=== PATIENT | male | born 1960 | race Caucasian/White ===

== ENCOUNTER 2016-12-14 00:45 | Emergency (ER) | payer OTHER ==
[~2016-12-14] VITALS: Ht 180.3 cm; Wt 145.6 kg
[~2016-12-14 00:45] MED LIST: AFRI0.055; AMOX875 PO; ASPI81 PO; BENA25TA5 PO; COMBAER INH; DYAZ37.52 PO; GEMF600T PO; HYDR-3580 PO; LOTR5CAP3 PO; PRED50TA PO; RANI150 PO; [UNRECOGNIZED DRUG - CODE] EACH EAR
[2016-12-14 00:58] VITALS: BP 225/100; PULSE 83; RESP 16; TEMP 98.6; O2SAT 98
[2016-12-14] MEDS ORDERED: TRIA37.5 PO (01:18)
[2016-12-14] MEDS ORDERED: ATEN50TA PO (01:18)
[2016-12-14] MEDS ORDERED: LOSA100T PO (01:18)
[2016-12-14] MEDS ORDERED: RANI150T PO (01:18)
[2016-12-14] MEDS ORDERED: GEMF600T PO (01:18)
[2016-12-14] MEDS ORDERED: ASPI81CH CHEW (01:18)
--- NOTE | 2016-12-14 01:24 | PD ---
HPI Chief Complaint: OD/ Ingestion Time Seen by Provider: 01:08 Travel History International Travel<30 days: No Contact w/Intl Traveler<30days: No History of Present Illness HPI patient is a 56-year-old male diabetic presents emergency department after he accidentally took a repeat dose of his gemfibrozil at approximately midnight tonight. Patient states he started taking that dose several hours earlier. He states he knew he took an extra pill by accident At All His Pills and This Is the Pill That He Is Missing. Denies Any Physical Complaints, States He Doesn't Typically Check His Blood Sugar at Home. Denies Any Chest Pain Shortness of Breath Fatigue Weakness Diaphoresis or Pallor. PFSH Past Medical History Cardiovascular Problems: Yes High Cholesterol: Yes COPD: Yes (EMPHYSEMA) Diabetes: Yes (STATES BORDERLINE-DIET CONTROLLED) Diminished Hearing: No Genitourinary: No Hypertension: Yes Musculoskeletal: No Neurologic: No Reproductive: No Respiratory: Yes (EMPHYSEMA) Past Surgical History Genitourinary Surgery: Yes (VASECTOMY) Other Surgery: No Social History Alcohol Use: No (QUIT 2011) Tobacco Use: No (QUIT 2006) Substance Use: No Allergies-Medications (Allergen,Severity, Reaction): Coded Allergies: No Known Allergies (Verified , 12/14/16) Reported Meds & Prescriptions Reported Meds & Active Scripts Active Reported Triamterene-Hydrochlorothiazide 37.5-25 Mg Tab 1 Tab PO DAILY Ranitidine (Ranitidine HCl) 150 Mg Tab 150 Mg PO DAILY Aspirin 81 Mg Chew 81 Mg CHEW DAILY Atenolol 50 Mg Tab 50 Mg PO DAILY Losartan (Losartan Potassium) 100 Mg Tab 100 Mg PO DAILY Gemfibrozil 600 Mg Tab 600 Mg PO BIDAC Take 30 minutes prior to breakfast and dinner. Review of Systems Except as stated in HPI: all other systems reviewed are Neg Physical Exam Narrative GENERAL: Well-nourished, well-developed patient. Morbidly obese SKIN: Focused skin assessment warm/dry. HEAD: Normocephalic. EYES: No scleral icterus. No injection or drainage. NECK: Supple, trachea midline. No JVD or lymphadenopathy. CARDIOVASCULAR: Regular rate and rhythm without murmurs, gallops, or rubs. RESPIRATORY: Breath sounds equal bilaterally. No accessory muscle use. GASTROINTESTINAL: Abdomen soft, non-tender, nondistended. MUSCULOSKELETAL: No cyanosis, or edema. BACK: Nontender without obvious deformity. No CVA tenderness. Data Data Last Documented VS Vital Signs Date Time Temp Pulse Resp B/P (MAP) Pulse Ox O2 Delivery O2 Flow Rate FiO2 12/14/16 03:07 12/14/16 00:58 98.6 83 16 98 Orders Orders Bedside Glucose POONAM.AC&HS (12/14/16 01:20) Call Poison Control (12/14/16 01:25) MDM Medical Decision Making Medical Screen Exam Complete: Yes Emergency Medical Condition: Yes Differential Diagnosis hyperglycemia, accidental overdose, medication problem. Narrative Course patient roomed emergency department, he appears well in no obvious distress, highly doubt that he is having any significant issue currently, poison control was contacted and agreed the patient is stable for discharge. This is discussed with the patient discussed medication safety at home including pillbox and counter. Diagnosis Primary Impression: Accidental overdose Disposition: DISCHARGE HOME Condition: Stable Glenn Wood MD Dec 14, 2016 01:24
== END 2016-12-14 03:26 | disposition home or self-care (01) ==
LOC: PHED 00:45
DX: T46.6X1A Poisoning by antihyperlipidemic and antiarteriosclerotic drugs, accidental (unintentional), initial encounter (principal); E11.9 Type 2 diabetes mellitus without complications; I10 Essential (primary) hypertension; E78.00 Pure hypercholesterolemia, unspecified; Z86.79 Personal history of other diseases of the circulatory system; Z87.09 Personal history of other diseases of the respiratory system
CPT/HCPCS: 99282

== ENCOUNTER 2017-03-09 21:08 | Emergency (ER) | payer OTHER ==
[~2017-03-09] VITALS: Ht 180.3 cm; Wt 146.6 kg
[~2017-03-09 21:08] MED LIST changes: -AFRI0.055; -AMOX875 PO; +ASPI-516 CHEW; -ASPI81 PO; +ATEN50TA PO; -BENA25TA5 PO; -COMBAER INH; -DYAZ37.52 PO; -HYDR-3580 PO; +LOSA100T PO; -LOTR5CAP3 PO; -PRED50TA PO; -RANI150 PO; +RANI150T PO; +TRIA37.5 PO; -[UNRECOGNIZED DRUG - CODE] EACH EAR
[2017-03-09 21:31] VITALS: BP 213/94; PULSE 80; RESP 18; TEMP 98.1; O2SAT 98
[2017-03-09] MEDS ORDERED: AMOX500C PO (21:43)
[2017-03-09 21:51] VITALS: BP 173/88; PULSE 68; RESP 18; O2SAT 96
[2017-03-09 22:35] VITALS: BP 164/89; PULSE 72; RESP 18; O2SAT 97
[2017-03-09 22:42] LABS: AUTOMATED NEUTROPHIL # 6.2 TH/MM3 (1.8-7.7); BASOPHIL # 0.1 TH/MM3 (0-0.2); BASOPHIL % 0.8 % (0.0-2.0); EOSINOPHIL # 0.7 TH/MM3 (0-0.4); EOSINOPHIL % 6.9 % (0.0-4.0); HEMATOCRIT 42.2 % (39.0-51.0); HEMO FLAGS DIFF FINAL; MEAN CORPUSCULAR HEMOGLOBIN 29.8 PG (27.0-34.0); MEAN CORPUSCULAR HGB CONC 33.1 % (32.0-36.0); MONO % 6.7 % (0.0-8.0); NEUT % 57.6 % (16.0-70.0); PLATELET COUNT 355 TH/MM3 (150-450); RED BLOOD COUNT 4.69 MIL/MM3 (4.50-5.90); RED CELL DISTRIBUTION WIDTH 12.1 % (11.6-17.2); WHITE BLOOD COUNT 10.7 TH/MM3 (4.0-11.0)
--- NOTE | 2017-03-09 22:42 | PD ---
HPI Chief Complaint: Hypertension Time Seen by Provider: 22:23 Travel History International Travel<30 days: No Contact w/Intl Traveler<30days: No Traveled to known affect area: No History of Present Illness HPI 56-year-old male presents to the emergency department by private transportation the care of his spouse for evaluation of poorly controlled blood pressure. Patient has long-standing history of hypertension is noticed his blood pressure is been very elevated the past 2 days. Patient states he does have visitors in his home and may be has changed his dietary intake of salt in the past week. Patient also more recently yesterday taking an oral antibiotic amoxicillin first dose was yesterday for head cold symptoms. Patient states he has a standing prescription for oral antibiotic for upper respiratory infection/ bronchitis/pneumonia symptoms due to his history of emphysema. Patient also has diet controlled diabetes. Patient states his blood sugars of animal control. Patient does not report any headache visual disturbance change in mentation change in speech or balance disturbance or focal upper or lower extremity numbness tingling or weakness. Patient states that he has been taking his blood pressure medication as prescribed and has not missed any dosages. Patient is no longer smoker. Patient is unable to identify why his blood pressure was elevated but because of the persistent elevation this evening decided to come to the emergency room for evaluation. Patient denies any chest pain or pleuritic pain or hemoptysis. Patient's current discomfort is 0/10 in intensity. Patient is able to identify exacerbating or alleviating factors. PFSH Past Medical History Narrative Medical Hypertension dyslipidemia diet-controlled diabetes emphysema prior tobacco use; vasectomy; nursing notes reviewed Cardiovascular Problems: Yes High Cholesterol: Yes COPD: Yes (EMPHYSEMA) Diabetes: Yes (STATES BORDERLINE-DIET CONTROLLED) Patient Takes Glucophage: No Diminished Hearing: No GERD: Yes Genitourinary: No Hypertension: Yes Musculoskeletal: No Neurologic: No Reproductive: No Respiratory: Yes (EMPHYSEMA) Tetanus Vaccination: Unknown Influenza Vaccination: No Past Surgical History Genitourinary Surgery: Yes (VASECTOMY) Other Surgery: No Social History Alcohol Use: No (QUIT 2011) Tobacco Use: No (QUIT 2006) Substance Use: No Allergies-Medications (Allergen,Severity, Reaction): Coded Allergies: No Known Allergies (Verified Adverse Reaction, Unknown, 03/09/17) Reported Meds & Prescriptions Reported Meds & Active Scripts Active Clonidine (Clonidine HCl) 0.1 Mg Tab 0.1 Mg PO Q12HR PRN Reported Amoxicillin 500 Mg Cap 500 Mg PO TID Triamterene-Hydrochlorothiazide 37.5-25 Mg Tab 1 Tab PO DAILY Ranitidine (Ranitidine HCl) 150 Mg Tab 150 Mg PO DAILY Aspirin 81 Mg Chew 81 Mg CHEW DAILY Atenolol 50 Mg Tab 50 Mg PO DAILY Losartan (Losartan Potassium) 100 Mg Tab 100 Mg PO DAILY Gemfibrozil 600 Mg Tab 600 Mg PO BIDAC Take 30 minutes prior to breakfast and dinner. Review of Systems Except as stated in HPI: all other systems reviewed are Neg General / Constitutional: No: Fever, Chills Eyes: No: Visual changes HENT: Positive: Congestion, No: Headaches, Sore Throat Cardiovascular: No: Chest Pain or Discomfort, Palpitations, Diaphoresis, Syncope Respiratory: Positive: Cough, No: Shortness of Breath, Wheezing, Orthopnea, Hemoptysis, Pleuritic Pain Gastrointestinal: No: Nausea, Vomiting, Diarrhea Genitourinary: No: Urgency, Frequency, Dysuria Musculoskeletal: No: Myalgias, Arthralgias Skin: No Rash Neurologic: No: Weakness Psychiatric: No: Anxiety Endocrine: No: Heat Intolerance Hematologic/Lymphatic: No: Easy Bruising Physical Exam Narrative GENERAL: Well-developed well-nourished female in no acute distress no respiratory distress SKIN: Warm and dry. HEAD: Normocephalic. EYES: No scleral icterus. No injection or drainage. NECK: Supple, trachea midline. No JVD or lymphadenopathy. CARDIOVASCULAR: Regular rate and rhythm without murmurs, gallops, or rubs. RESPIRATORY: Breath sounds equal bilaterally. No accessory muscle use. GASTROINTESTINAL: Abdomen soft, non-tender, nondistended. MUSCULOSKELETAL: No cyanosis, or edema. BACK: Nontender without obvious deformity. No CVA tenderness. NEUROLOGICAL: Awake and alert. No obvious cranial nerve deficits. Motor grossly within normal limits. Five out of 5 muscle strength in the arms and legs. No limb ataxia. No pronator drift. Normal speech. PSYCHIATRIC: Appropriate mood and affect; insight and judgment normal. Data Data Last Documented VS Vital Signs Date Time Temp Pulse Resp B/P (MAP) Pulse Ox O2 Delivery O2 Flow Rate FiO2 03/09/17 22:35 72 18 164/89 (114) 97 03/09/17 21:51 Room Air 03/09/17 21:31 98.1 Orders Orders ^ Saline Lock (03/09/17 22:24) Complete Blood Count With Diff (03/09/17 22:24) Basic Metabolic Panel (Bmp) (03/09/17 22:24) Troponin I (03/09/17 22:24) Electrocardiogram (03/09/17 ) Chest, Single Ap (03/09/17 ) Ed Discharge Order (03/09/17 23:23) Labs Laboratory Tests Test 03/09/17 22:37 White Blood Count 10.7 TH/MM3 Red Blood Count 4.69 MIL/MM3 Hemoglobin 14.0 GM/DL Hematocrit 42.2 % Mean Corpuscular Volume 90.0 FL Mean Corpuscular Hemoglobin 29.8 PG Mean Corpuscular Hemoglobin Concent 33.1 % Red Cell Distribution Width 12.1 % Platelet Count 355 TH/MM3 Mean Platelet Volume 8.1 FL Neutrophils (%) (Auto) 57.6 % Lymphocytes (%) (Auto) 28.0 % Monocytes (%) (Auto) 6.7 % Eosinophils (%) (Auto) 6.9 % Basophils (%) (Auto) 0.8 % Neutrophils # (Auto) 6.2 TH/MM3 Lymphocytes # (Auto) 3.0 TH/MM3 Monocytes # (Auto) 0.7 TH/MM3 Eosinophils # (Auto) 0.7 TH/MM3 Basophils # (Auto) 0.1 TH/MM3 CBC Comment DIFF FINAL Differential Comment Blood Urea Nitrogen 22 MG/DL Creatinine 1.10 MG/DL Random Glucose 116 MG/DL Calcium Level 9.1 MG/DL Sodium Level 137 MEQ/L Potassium Level 4.5 MEQ/L Chloride Level 101 MEQ/L Carbon Dioxide Level 27.5 MEQ/L Anion Gap 9 MEQ/L Estimat Glomerular Filtration Rate 69 ML/MIN Troponin I LESS THAN 0.02 NG/ML MDM Medical Decision Making Medical Screen Exam Complete: Yes Emergency Medical Condition: Yes Medical Record Reviewed: Yes Interpretation(s) EKG normal sinus rhythm rate [address] elevation injury pattern or ectopy noted Last Impressions Chest X-Ray 03/09/17 0000 Signed Impressions: Service Date/Time: March 22:48 - CONCLUSION: No acute disease. 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 Patient is stable for outpatient management. Patient is been given one day no work for close follow-up with primary care provider. Diagnosis Primary Impression: HTN (hypertension) Qualified Codes: I10 - Essential (primary) hypertension Referrals: Primary Care Physician 1 day Patient Instructions: General Instructions Departure Forms: Tests/Procedures, Work Release Special Instructions: no work x 1 day Med/Other Pt SpecificInfo: Prescription(s) given Scripts Clonidine (Clonidine) 0.1 Mg Tab 0.1 MG PO Q12HR Y for SBP>180, DBP>95, #5 TAB 0 Refills Prov: Alberta Freeman MD 03/09/17 Disposition: DISCHARGE HOME Condition: Stable Alberta Freeman MD Mar 09, 2017 22:42
[2017-03-09 22:47] LABS: CHLORIDE 101 MEQ/L (98-107); POTASSIUM 4.5 MEQ/L (3.5-5.1); SODIUM (NA) 137 MEQ/L (136-145)
[2017-03-09 22:50] LABS: ANION GAP 9 MEQ/L (5-15); BICARBONATE 27.5 MEQ/L (21.0-32.0); BLOOD UREA NITROGEN 22 MG/DL (7-18)
[2017-03-09 22:54] LABS: GLOMERULAR FILTRATION RATE 69 ML/MIN (>89)
--- NOTE | 2017-03-09 22:58 | RADRPT ---
EXAM DATE/TIME: 03/09/2017 22:48 [facility] COMPARISON: No previous studies available for comparison. INDICATIONS : Short of breath. Patient also states feels like his blood pressure is elevated. MEDICAL HISTORY : Hypertension. SURGICAL HISTORY : ENCOUNTER: Initial ACUITY: 1 day PAIN SCORE: 0/10 LOCATION: Bilateral chest FINDINGS: A single view of the chest demonstrates the lungs to be symmetrically aerated without evidence of mas s, infiltrate or effusion. The cardiomediastinal contours are unremarkable. Osseous structures are intact. CONCLUSION: No acute disease. Glenn Hills MD on March 09, 2017 at 22:56 Board Certified Radiologist. This report was verified electronically.
[2017-03-09] MEDS ORDERED: CLON0.1T PO (23:16)
[2017-03-09 23:27] VITALS: BP 152/74
--- NOTE | 2017-03-10 04:55 | EKG ---
Date Performed: 03/09/2017 Time Performed: 22:36:40 PTAGE: 56 years EKG: Sinus rhythm NORMAL ECG Compared to prior electrocardiogram, rate has decreased PREVIOUS TRACING : 08/16/2010 07.27 DOCTOR: Alejandro Bower Interpretating Date/Time 03/10/2017 04:55:01
== END 2017-03-09 23:40 | disposition home or self-care (01) ==
LOC: PHED 21:08
DX: I10 Essential (primary) hypertension (principal); K21.9 Gastro-esophageal reflux disease without esophagitis; R06.02 Shortness of breath; Z87.891 Personal history of nicotine dependence
CPT/HCPCS: 71010; 80048; 84484; 85025; 93005; 99285

== ENCOUNTER 2017-04-02 17:01 | Observation (INO) | payer OTHER ==
[2017-04-02] VITALS (9 sets, daily range): BP systolic 138–180; BP diastolic 73–90; PULSE 55–76; RESP 16–20; TEMP 97.9–98.9; O2SAT 96–99
[~2017-04-02] VITALS: Ht 180.3 cm; Wt 139.6 kg
[~2017-04-02 17:01] MED LIST changes: +AMOX500C PO; +CLON0.1T PO
[2017-04-02] MEDS ORDERED: ALBU.5I NEB (17:23)
[2017-04-02] MEDS ORDERED: ALBUAER3 INH (17:23)
--- NOTE | 2017-04-02 17:38 | PD ---
HPI Chief Complaint: Chest Pain Time Seen by Provider: 17:13 Travel History International Travel<30 days: No Contact w/Intl Traveler<30days: No Traveled to known affect area: No History of Present Illness HPI This patient complains of an atypical chest pain. Started at 10 AM this morning. It waxes and wanes throughout the day. Location is left lower chest. Severity is moderate. No presyncopal symptoms or shortness of breath. It is not pleuritic. He describes it as a catching or pressure type sensation. He had a stress test 9 years ago but nothing recent. He has multiple coronary artery disease risk factors. No alleviating factors. No exacerbating factors. Duration 8 hours PFSH Past Medical History Cardiovascular Problems: Yes (HTN) High Cholesterol: Yes COPD: Yes (EMPHYSEMA) Diabetes: Yes Patient Takes Glucophage: No Diminished Hearing: No GERD: Yes Genitourinary: No Hypertension: Yes Musculoskeletal: No Neurologic: No Reproductive: No Respiratory: Yes Immunizations Current: Yes Tetanus Vaccination: > 5 Years Influenza Vaccination: No Past Surgical History Genitourinary Surgery: Yes (VASECTOMY) Other Surgery: No Social History Alcohol Use: No (QUIT 2011) Tobacco Use: No (QUIT 2006) Substance Use: No Allergies-Medications (Allergen,Severity, Reaction): Coded Allergies: No Known Allergies (Verified Adverse Reaction, Unknown, 04/02/17) Reported Meds & Prescriptions Reported Meds & Active Scripts Active Clonidine (Clonidine HCl) 0.1 Mg Tab 0.1 Mg PO Q12HR PRN Reported Albuterol Neb (Albuterol Sulfate) 2.5 Mg/0.5 Ml Neb 2.5 Mg NEB Q4HR NEB PRN Note: The Albuterol Sulfate Inhalation Solution is concentrated and must be diluted. Read complete instructions carefully before using. Proair Hfa 8.5 GM Inh (Albuterol Sulfate) 90 Mcg/Act Aer 2 Puff INH Q4-6H PRN 108 mcg/actuation Amoxicillin 500 Mg Cap 500 Mg PO TID Triamterene-Hydrochlorothiazide 37.5-25 Mg Tab 1 Tab PO DAILY Ranitidine (Ranitidine HCl) 150 Mg Tab 150 Mg PO DAILY Aspirin 81 Mg Chew 81 Mg CHEW DAILY Atenolol 50 Mg Tab 50 Mg PO DAILY Losartan (Losartan Potassium) 100 Mg Tab 100 Mg PO DAILY Gemfibrozil 600 Mg Tab 600 Mg PO DAILY Take 30 minutes prior to breakfast and dinner. Review of Systems General / Constitutional: No: Fever Eyes: No: Visual changes HENT: No: Headaches Cardiovascular: Positive: Chest Pain or Discomfort Respiratory: No: Shortness of Breath Gastrointestinal: No: Abdominal Pain Genitourinary: No: Dysuria Musculoskeletal: No: Pain Skin: No Rash Neurologic: No: Weakness Psychiatric: No: Depression Endocrine: No: Polydipsia Hematologic/Lymphatic: No: Easy Bruising Physical Exam Narrative GENERAL: Well-nourished, well-developed patient in no apparent distress. SKIN: Focused skin assessment reveals no rash and nodules. Skin is Warm and dry. HEAD: Atraumatic. Normocephalic. EYES: Pupils equal and round. No scleral icterus. No injection or drainage. ENT: No nasal bleeding or discharge. Mucous membranes pink and moist. NECK: Trachea midline. No JVD. CARDIOVASCULAR: Regular rate and rhythm. No murmur appreciated. RESPIRATORY: No accessory muscle use. Clear to auscultation. Breath sounds equal bilaterally. GASTROINTESTINAL: Abdomen soft, non-tender, nondistended. Hepatic and splenic margins not palpable. MUSCULOSKELETAL: No obvious deformities. No clubbing. No cyanosis. No edema. No chest wall tenderness NEUROLOGICAL: Awake and alert. No obvious cranial nerve deficits. Motor grossly within normal limits. Normal speech. PSYCHIATRIC: Appropriate mood and affect; insight and judgment normal. Data Data Last Documented VS Vital Signs Date Time Temp Pulse Resp B/P (MAP) Pulse Ox O2 Delivery O2 Flow Rate FiO2 04/02/17 17:30 98 Room Air 04/02/17 17:09 73 04/02/17 17:09 20 04/02/17 17:05 98.9 Orders Orders Electrocardiogram (04/02/17 17:34) Basic Metabolic Panel (Bmp) (04/02/17 17:34) Ckmb (Isoenzyme) Profile (04/02/17 17:34) Complete Blood Count With Diff (04/02/17 17:34) Magnesium (Mg) (04/02/17 17:34) Prothrombin Time / Inr (Pt) (04/02/17 17:34) Act Partial Throm Time (Ptt) (04/02/17 17:34) Troponin I (04/02/17 17:34) Chest, Single Ap (04/02/17 17:34) Ecg Monitoring (04/02/17 17:34) Iv Access Insert/Monitor (04/02/17 17:34) Oximetry (04/02/17 17:34) Sodium Chloride 0.9% Flush (Ns Flush) (04/02/17 17:45) CKMB (04/02/17 17:30) CKMB% (04/02/17 17:30) Admit Order (Ed Use Only) (04/02/17 18:40) Labs Laboratory Tests Test 04/02/17 17:30 White Blood Count 11.8 TH/MM3 Red Blood Count 4.57 MIL/MM3 Hemoglobin 13.7 GM/DL Hematocrit 40.9 % Mean Corpuscular Volume 89.5 FL Mean Corpuscular Hemoglobin 30.0 PG Mean Corpuscular Hemoglobin Concent 33.6 % Red Cell Distribution Width 12.1 % Platelet Count 356 TH/MM3 Mean Platelet Volume 8.1 FL Neutrophils (%) (Auto) 60.2 % Lymphocytes (%) (Auto) 23.3 % Monocytes (%) (Auto) 9.3 % Eosinophils (%) (Auto) 6.4 % Basophils (%) (Auto) 0.8 % Neutrophils # (Auto) 7.0 TH/MM3 Lymphocytes # (Auto) 2.8 TH/MM3 Monocytes # (Auto) 1.1 TH/MM3 Eosinophils # (Auto) 0.8 TH/MM3 Basophils # (Auto) 0.1 TH/MM3 CBC Comment DIFF FINAL Differential Comment Prothrombin Time 10.2 SEC Prothromb Time International Ratio 1.0 RATIO Activated Partial Thromboplast Time 24.6 SEC Blood Urea Nitrogen 24 MG/DL Creatinine 1.10 MG/DL Random Glucose 113 MG/DL Calcium Level 9.8 MG/DL Magnesium Level 2.3 MG/DL Sodium Level 137 MEQ/L Potassium Level 4.2 MEQ/L Chloride Level 101 MEQ/L Carbon Dioxide Level 27.3 MEQ/L Anion Gap 9 MEQ/L Estimat Glomerular Filtration Rate 69 ML/MIN Total Creatine Kinase 210 U/L Creatine Kinase MB 2.2 NG/ML Troponin I LESS THAN 0.02 NG/ML MDM Medical Decision Making Medical Screen Exam Complete: Yes Emergency Medical Condition: Yes Medical Record Reviewed: Yes Differential Diagnosis Differential diagnosis includes RI, angina, pericarditis, pleurisy, GERD, anxiety. Narrative Course I have reviewed the patient's electronic medical record. Patient was seen here earlier this month for hypertension IV placed I reviewed the EKG which shows sinus rhythm and no acute ST elevation I reviewed the chest x-ray which is normal Extended cardiac monitoring shows sinus rhythm without ectopy CBC is normal Metabolic profile is normal CK is normal Troponin is normal Coagulation studies are normal He had an aspirin today so I did not give her one now Workup is negative but he has multiple risk factors. He is borderline diabetic and has a long smoking history and is obese and hypertensive. Case reviewed with hospitalist who will serve on telemetry in the chest pain center to rule out cardiac cause of his symptoms Diagnosis Primary Impression: Chest pain Qualified Codes: R07.9 - Chest pain, unspecified Additional Impressions: COPD (chronic obstructive pulmonary disease) with emphysema Qualified Codes: J43.9 - Emphysema, unspecified Hypertension Qualified Codes: I10 - Essential (primary) hypertension Admitting Information Admitting Physician Requests: Lneo Galdamez MD Apr 02, 2017 17:38
[2017-04-02] MEDS ORDERED: SODIUM CHLORIDE 0.9% FLUSH 10 ML FLUSH IVF PRN (17:45)
[2017-04-02 17:46] LABS: BASOPHIL # 0.1 TH/MM3 (0-0.2); BASOPHIL % 0.8 % (0.0-2.0); EOSINOPHIL # 0.8 TH/MM3 (0-0.4); EOSINOPHIL % 6.4 % (0.0-4.0); HEMATOCRIT 40.9 % (39.0-51.0); HEMOGLOBIN 13.7 GM/DL (13.0-17.0); LYMPH % 23.3 % (9.0-44.0); LYMPHOCYTE # 2.8 TH/MM3 (1.0-4.8); MEAN CELL VOLUME 89.5 FL (80.0-100.0); MEAN CORPUSCULAR HGB CONC 33.6 % (32.0-36.0); MEAN PLATELET VOLUME 8.1 FL (7.0-11.0); MONO % 9.3 % (0.0-8.0); MONOCYTE # 1.1 TH/MM3 (0-0.9); NEUT % 60.2 % (16.0-70.0); PLATELET COUNT 356 TH/MM3 (150-450); RED BLOOD COUNT 4.57 MIL/MM3 (4.50-5.90); RED CELL DISTRIBUTION WIDTH 12.1 % (11.6-17.2); WHITE BLOOD COUNT 11.8 TH/MM3 (4.0-11.0)
[2017-04-02 17:55] LABS: CHLORIDE 101 MEQ/L (98-107); SODIUM (NA) 137 MEQ/L (136-145)
--- NOTE | 2017-04-02 17:55 | RADRPT ---
EXAM DATE/TIME: 04/02/2017 17:41 [facility] COMPARISON: CHEST SINGLE AP, March 09, 2017, 22:48. INDICATIONS : Left lower chest pain, tingling sensation across posterior chest MEDICAL HISTORY : Emphysema. Hypertension SURGICAL HISTORY : None. ENCOUNTER: Initial ACUITY: 1 day PAIN SCORE: 4/10 LOCATION: Left lower chest FINDINGS: The lungs are clear without infiltrate, nodule, or mass. There is no appreciable pleural effusion fo r technique. Heart and mediastinum are unremarkable. CONCLUSION: No acute cardiopulmonary disease. Ave Xiong MD on April 02, 2017 at 17:53 Board Certified Radiologist. This report was verified electronically.
[2017-04-02 17:57] LABS: CALCIUM 9.8 MG/DL (8.5-10.1)
[2017-04-02 17:58] LABS: BICARBONATE 27.3 MEQ/L (21.0-32.0); BLOOD UREA NITROGEN 24 MG/DL (7-18); GLUCOSE,RANDOM 113 MG/DL (74-106); MAGNESIUM 2.3 MG/DL (1.5-2.5)
[2017-04-02 18:01] LABS: GLOMERULAR FILTRATION RATE 69 ML/MIN (>89); PROTHROMBIN TIME - PATIENT 10.2 SEC (9.8-11.6)
[2017-04-02 18:06] LABS: TROPONIN I LESS THAN 0.02 NG/ML (0.02-0.05)
[2017-04-02] MEDS ORDERED: TEMAZEPAM 15 MG CAP PO PRN (19:30)
[2017-04-02] MEDS ORDERED: SODIUM CHLORIDE 0.9% FLUSH 10 ML FLUSH IV FLUSH PRN (19:30)
[2017-04-02] MEDS ORDERED: LACTULOSE SYRUP 20 GM/30 ML CUP PO PRN (19:30)
[2017-04-02] MEDS ORDERED: ONDANSETRON HCL 4 MG/2 ML VIAL IVP PRN (19:30)
[2017-04-02] MEDS ORDERED: SENNOSIDES 8.6 MG TAB PO PRN (19:30)
[2017-04-02] MEDS ORDERED: BISACODYL 10 MG SUPP RECTAL PRN (19:30)
[2017-04-02] MEDS ORDERED: ACETAMINOPHEN 325 MG TAB PO PRN (19:30)
[2017-04-02] MEDS ORDERED: cloNIDine HCL 0.1 MG TAB PO PRN (19:30)
[2017-04-02] MEDS ORDERED: MAGNESIUM HYDROXIDE SUSP 30 ML CUP PO PRN (19:30)
[2017-04-02] MEDS ORDERED: NALOXONE HCL 0.4 MG/ML AMP IV PUSH PRN (19:30)
[2017-04-02] MEDS ORDERED: ENOXAPARIN SODIUM 40 MG/0.4 ML SYRINGE SQ SCH (20:00)
[2017-04-02] MEDS: DOCUSATE SODIUM 50 MG/SENNA 8.6 MG TAB PO SCH (21:00)
[2017-04-02] MEDS: SODIUM CHLORIDE 0.9% FLUSH 10 ML FLUSH IV FLUSH SCH (21:00)
--- NOTE | 2017-04-02 21:42 | EKG ---
Date Performed: 04/02/2017 Time Performed: 19:39:00 PTAGE: 56 years EKG: SINUS BRADYCARDIA WITH SINUS ARRHYTHMIA BORDERLINE ECG Compared to prior electrocardiogram, rate has decreased PREVIOUS TRACING : 04/02/2017 17.28 DOCTOR: Alejandro Bower Interpretating Date/Time 04/02/2017 21:41:47
--- NOTE | 2017-04-02 21:53 | EKG ---
Date Performed: 04/02/2017 Time Performed: 17:28:23 PTAGE: 56 years EKG: Sinus rhythm MODERATE INTRAVENTRICULAR CONDUCTION DELAY BORDERLINE ECG No significant change from prior electroca rdiogram. PREVIOUS TRACING : 03/09/2017 22.36 DOCTOR: Alejandro Bower Interpretating Date/Time 04/02/2017 21:51:55
--- NOTE | 2017-04-02 22:30 | EKG ---
Date Performed: 04/02/2017 Time Performed: 22:06:45 PTAGE: 56 years EKG: SINUS BRADYCARDIA WITH SINUS ARRHYTHMIA BORDERLINE ECG No significant change from prior nilson ctrocardiogram. PREVIOUS TRACING : 04/02/2017 19.39 DOCTOR: Alejandro Bower Interpretating Date/Time 04/02/2017 22:28:56
[2017-04-03] VITALS: BP 167/77; PULSE 62; RESP 20; TEMP 97.5; O2SAT 98
[2017-04-03 04:00] VITALS: BP 142/76; PULSE 53; RESP 20; TEMP 97.5; O2SAT 98
[2017-04-03 06:49] LABS: AUTOMATED NEUTROPHIL # 5.3 TH/MM3 (1.8-7.7); BASOPHIL # 0.1 TH/MM3 (0-0.2); BASOPHIL % 0.7 % (0.0-2.0); EOSINOPHIL # 0.7 TH/MM3 (0-0.4); EOSINOPHIL % 6.1 % (0.0-4.0); HEMATOCRIT 39.9 % (39.0-51.0); HEMOGLOBIN 13.5 GM/DL (13.0-17.0); LYMPH % 36.9 % (9.0-44.0); LYMPHOCYTE # 4.2 TH/MM3 (1.0-4.8); MEAN CELL VOLUME 90.1 FL (80.0-100.0); MEAN CORPUSCULAR HEMOGLOBIN 30.5 PG (27.0-34.0); MEAN CORPUSCULAR HGB CONC 33.8 % (32.0-36.0); MEAN PLATELET VOLUME 8.4 FL (7.0-11.0); MONO % 8.7 % (0.0-8.0); NEUT % 47.6 % (16.0-70.0); PLATELET COUNT 308 TH/MM3 (150-450); RED BLOOD COUNT 4.43 MIL/MM3 (4.50-5.90); RED CELL DISTRIBUTION WIDTH 12.2 % (11.6-17.2); WHITE BLOOD COUNT 11.3 TH/MM3 (4.0-11.0)
[2017-04-03 07:02] LABS: CALCIUM 9.2 MG/DL (8.5-10.1)
[2017-04-03 07:06] LABS: CREATININE 1.1 MG/DL (0.60-1.30)
[2017-04-03 07:50] VITALS: BP 153/81; PULSE 68; RESP 20; TEMP 96.6; O2SAT 98
[2017-04-03 08:00] VITALS: PULSE 61
--- NOTE | 2017-04-03 08:31 | HHI.HP ---
HPI Service [facility] Primary Care Physician Arturo Farrell MD Admission Diagnosis Chest pain Diagnoses: (1) Chest pain Chief Complaint: Chest pain Travel History International Travel<30 Days: No Contact w/Intl Traveler <30 Da: No Traveled to Known Affected Are: No History of Present Illness Mr. Nogueira is a 56-year-old male patient with a known medical history of hypertension, hyperlipidemia, COPD and DM who presented to the ED with complaints of chest pain. Patient states that around 1000 yesterday morning while sitting down resting at home he developed a tingling and warm sensation between his shoulder blades that radiated to the left side of his chest. He characterizes the pain in his left chest as a dull/tight pain, rated a 4/10 on pain scale at its worse, and lasted several hours until he arrived to the ED. He denies any associated nausea, vomiting, or diachoresis but does admit to some shortness of breath. Denies any recognizable relieving or aggravating factors. Denies any recent fevers, chills headache, abdominal pain, n/v/d or dysuria. Patient did take his BP at home when he developed the pain and his systolic was in the 160's. His PCP is Dr. Farrell who has been managing his BP medications and lately his readings have been elevated. Last seen was last and was given Clonidine PRN as needed for hypertension. Does admit to undergoing a nuclear stress test 8 years ago and was reportedly unremarkable. Does not follow with a special duty nurse. Review of Systems Constitutional: DENIES: Fever, Chills Eyes: DENIES: Blurred vision, Diplopia Respiratory: COMPLAINS OF: Shortness of breath, DENIES: Cough Cardiovascular: COMPLAINS OF: Chest pain, Palpitations Gastrointestinal: DENIES: Abdominal pain, Constipation, Diarrhea, Nausea, Vomiting Genitourinary: DENIES: Urinary frequency Integumentary: DENIES: Rash Hematologic/lymphatic: DENIES: Bruising Psychiatric: DENIES: Anxiety Except as stated in HPI: all other systems reviewed are Neg Past Family Social History Past Medical History Hypertension Hyperlipidemia COPD Borderline diabetes GERD Past Surgical History Vasectomy Reported Medications Active Clonidine (Clonidine HCl) 0.1 Mg Tab 0.1 Mg PO Q12HR PRN Reported Albuterol Neb (Albuterol Sulfate) 2.5 Mg/0.5 Ml Neb 2.5 Mg NEB Q4HR NEB PRN Note: The Albuterol Sulfate Inhalation Solution is concentrated and must be diluted. Read complete instructions carefully before using. Proair Hfa 8.5 GM Inh (Albuterol Sulfate) 90 Mcg/Act Aer 2 Puff INH Q4-6H PRN 108 mcg/actuation Triamterene-Hydrochlorothiazide 37.5-25 Mg Tab 1 Tab PO DAILY Ranitidine (Ranitidine HCl) 150 Mg Tab 150 Mg PO DAILY Aspirin 81 Mg Chew 81 Mg CHEW DAILY Atenolol 50 Mg Tab 50 Mg PO DAILY Losartan (Losartan Potassium) 100 Mg Tab 100 Mg PO DAILY Gemfibrozil 600 Mg Tab 600 Mg PO DAILY Take 30 minutes prior to breakfast and dinner. Allergies: Coded Allergies: No Known Allergies (Verified Adverse Reaction, Unknown, 04/02/17) Active Ordered Medications Current Medications Medications (Trade) Dose Ordered Sig/Sarah Route Start Time Stop Time Status Last Admin (Aspirin Chew) 81 mg DAILY CHEW 04/03/17 09:00 04/03/17 08:49 (Tenormin) 50 mg DAILY PO 04/03/17 09:00 04/03/17 08:49 (Catapres) 0.1 mg Q12HR PRN PO 04/02/17 19:30 (Lopid) 600 mg DAILY PO 04/03/17 09:00 (Cozaar) 100 mg DAILY PO 04/03/17 09:00 04/03/17 08:49 (Maxzide 37.5-25 Mg) 1 tab DAILY PO 04/03/17 09:00 04/03/17 08:49 (Pepcid) 20 mg DAILY PO 04/03/17 09:00 04/03/17 08:49 (NS Flush) 2 ml UNSCH PRN IV FLUSH 04/02/17 19:30 (NS Flush) 2 ml BID IV FLUSH 04/02/17 21:00 04/03/17 08:51 (Tylenol) 650 mg Q4H PRN PO 04/02/17 19:30 (Zofran Inj) 4 mg Q6H PRN IVP 04/02/17 19:30 (Restoril) 15 mg HS PRN PO 04/02/17 19:30 (Lovenox Inj) 40 mg Q24H SQ 04/02/17 20:00 04/02/17 20:11 (Narcan Inj) 0.4 mg UNSCH PRN IV PUSH 04/02/17 19:30 (Krystal-Colace) 1 tab BID PO 04/02/17 21:00 (Milk Of Magnesia Liq) 30 ml Q12H PRN PO 04/02/17 19:30 (Senokot) 17.2 mg Q12H PRN PO 04/02/17 19:30 (Dulcolax Supp) 10 mg DAILY PRN RECTAL 04/02/17 19:30 (Lactulose Liq) 30 ml DAILY PRN PO 04/02/17 19:30 Family History Maternal medical history significant for stroke Paternal medical history significant for cardiovascular disease, at the age of 7070 years old. Social History Denies any current tobacco use, states he quit 8 years ago. Denies any alcohol use. Denies any illicit drug use. Physical Exam Vital Signs Vital Signs Date Time Temp Pulse Resp B/P (MAP) Pulse Ox O2 Delivery O2 Flow Rate FiO2 04/03/17 04:00 97.5 53 20 142/76 (98) 98 04/03/17 00:00 97.5 62 20 167/77 (107) 98 04/02/17 21:00 60 04/02/17 20:59 97 21 04/02/17 20:45 97.9 66 20 172/90 (117) 97 04/02/17 20:30 18 56 139/73 (95) 96 04/02/17 20:28 52 18 96 Room Air 04/02/17 20:13 59 18 139/73 (95) 99 Room Air 04/02/17 19:00 55 18 138/77 (97) 96 Room Air 04/02/17 17:30 98 Room Air 04/02/17 17:09 73 99 Room Air 04/02/17 17:09 65 20 176/84 (114) 98 Room Air 04/02/17 17:05 98.9 76 16 180/81 (114) 98 Physical Exam GENERAL: This is a well-nourished, obese male patient, sitting up in chair in no apparent distress. SKIN: No rashes, ecchymoses or lesions. Warm and dry. HEAD: Atraumatic. Normocephalic. EYES: Pupils equal round and reactive. Extraocular motions intact. No scleral icterus. No injection or drainage. ENT: Nose without bleeding, purulent drainage or septal hematoma. Throat without erythema, tonsillar hypertrophy or exudate. Uvula midline. Airway patent. NECK: Trachea midline. No JVD. Supple. CARDIOVASCULAR: Regular rate and rhythm without murmurs, gallops, or rubs. no reproducible chest pain to palpation. RESPIRATORY: Clear to auscultation. Breath sounds equal bilaterally. No wheezes , rales, or rhonchi. GASTROINTESTINAL: Abdomen soft, non-tender, nondistended. No guarding. MUSCULOSKELETAL: Extremities without clubbing, cyanosis, or edema. No joint tenderness, effusion, or edema noted. NEUROLOGICAL: Awake and alert. Cranial nerves II through XII intact. Motor and sensory grossly within normal limits. Five out of 5 muscle strength in all muscle groups. Normal speech. Laboratory Laboratory Tests Test 04/02/17 17:30 04/02/17 19:55 04/02/17 22:11 04/03/17 06:15 White Blood Count 11.8 11.3 Red Blood Count 4.57 4.43 Hemoglobin 13.7 13.5 Hematocrit 40.9 39.9 Mean Corpuscular Volume 89.5 90.1 Mean Corpuscular Hemoglobin 30.0 30.5 Mean Corpuscular Hemoglobin Concent 33.6 33.8 Red Cell Distribution Width 12.1 12.2 Platelet Count 356 308 Mean Platelet Volume 8.1 8.4 Neutrophils (%) (Auto) 60.2 47.6 Lymphocytes (%) (Auto) 23.3 36.9 Monocytes (%) (Auto) 9.3 8.7 Eosinophils (%) (Auto) 6.4 6.1 Basophils (%) (Auto) 0.8 0.7 Neutrophils # (Auto) 7.0 5.3 Lymphocytes # (Auto) 2.8 4.2 Monocytes # (Auto) 1.1 1.0 Eosinophils # (Auto) 0.8 0.7 Basophils # (Auto) 0.1 0.1 CBC Comment DIFF FINAL DIFF FINAL Differential Comment Prothrombin Time 10.2 Prothromb Time International Ratio 1.0 Activated Partial Thromboplast Time 24.6 Blood Urea Nitrogen 24 22 Creatinine 1.10 1.10 Random Glucose 113 97 Calcium Level 9.8 9.2 Magnesium Level 2.3 Sodium Level 137 137 Potassium Level 4.2 4.2 Chloride Level 101 101 Carbon Dioxide Level 27.3 30.0 Anion Gap 9 6 Estimat Glomerular Filtration Rate 69 69 Total Creatine Kinase 210 Creatine Kinase MB 2.2 Troponin I LESS THAN 0.02 LESS THAN 0.02 LESS THAN 0.02 Result Diagram: 04/03/17 0615 04/03/17 0615 Imaging Last Impressions Chest X-Ray 04/02/17 4744 Signed Impressions: Service Date/Time: Sunday, April 02, 2017 17:41 - CONCLUSION: No acute cardiopulmonary disease. Ave Xiong MD Septic Shock Reassessment Septic shock perfusion: reassessment completed Caprini VTE Risk Assessment Caprini VTE Risk Assessment: No/Low Risk (score <= 1) Caprini Risk Assessment Model Point Value = 1 Point Value = 2 Point Value = 3 Point Value = 5 Age 41-60 Minor surgery BMI > 25 kg/m2 Swollen legs Varicose veins or History of unexplained or recurrent spontaneous Oral contraceptives or hormone replacement Sepsis (< 1 month) Serious lung disease, including pneumonia (< 1 month) Abnormal pulmonary function Acute myocardial infarction Congestive heart failure (< 1 month) History of inflammatory bowel disease Medical patient at bed rest Age 61-74 Arthroscopic surgery Major open surgery (> 45 min) Laparoscopic surgery (> 45 min) Malignancy Confined to bed (> 72 hours) Immobilizing plaster cast Central venous access Age >= 75 History of VTE Family history of VTE Factor V Leiden Prothrombin [id number] Lupus anticoagulant Anticardiolipin antibodies Elevated serum homocysteine Heparin-induced thrombocytopenia Other congenital or acquired thrombophilia Stroke (< 1 month) Elective arthroplasty Hip, pelvis, or leg fracture Acute spinal cord injury (< 1 month) Prophylaxis Regimen Total Risk Factor Score Risk Level Prophylaxis Regimen 0-1 Low Early ambulation 2 Moderate Order ONE of the following: *Sequential Compression Device (SCD) *Heparin 5000 units SQ BID 3-4 Higher Order ONE of the following medications: *Heparin 5000 units SQ TID *Enoxaparin/Lovenox 40 mg SQ daily (WT < 150 kg, CrCl > 30 mL/min) *Enoxaparin/Lovenox 30 mg SQ daily (WT < 150 kg, CrCl > 10-29 mL/min) *Enoxaparin/Lovenox 30 mg SQ BID (WT < 150 kg, CrCl > 30 mL/min) AND/OR *Sequential Compression Device (SCD) 5 or more Highest Order ONE of the following medications: *Heparin 5000 units SQ TID (Preferred with Epidurals) *Enoxaparin/Lovenox 40 mg SQ daily (WT < 150 kg, CrCl > 30 mL/min) *Enoxaparin/Lovenox 30 mg SQ daily (WT < 150 kg, CrCl > 10-29 mL/min) *Enoxaparin/Lovenox 30 mg SQ BID (WT < 150 kg, CrCl > 30 mL/min) AND *Sequential Compression Device (SCD) Assessment and Plan Problem List: (1) Chest pain ICD Code: R07.9 - Chest pain, unspecified Status: Acute (2) Hypertension ICD Code: I10 - Essential (primary) hypertension Status: Acute Assessment and Plan Mr. Nogueira is a 56-year-old male patient with a known medical history of hypertension, hyperlipidemia, COPD and DM who presented to the ED with complaints of chest pain. Chest pain, atypical Patient has been admitted to the chest pain center. Serial EKGs and serial troponins have been ordered for ruling out ACS purposes, serial troponin trend is flat. EKG reviewed showing Sinus bradycardia with HR 57, no ST changes noted. CXR reviewed showing no acute disease. CBC and BMP reviewed which are essentially unremarkable. Chest pain has completely resolved at this time. Aspirin daily. Patient does have risk factors for heart disease including age, weight, family history and smoking history. He will undergo a nuclear stress test to rule out any further possibility of ischemia. Further treatment plan and hospitalization will depend on nuclear results. Follow. Patient is stable at this time and agreeable to the plan. Hypertension, chronic: Continue home mediations. Monitor BP trends. BP COPD: Stable. Not in acute exacerbation. Supportive care. DVT Prophylaxis: SCDs. Patient underwent a nuclear stress test and reports have been reviewed, EF 42%, no areas of ischemia. Patient follows with his PCP for hypertension control. Recommendations for outpatient follow up and possible establishment with special duty nurse. Problem Qualifiers (1) Chest pain: Qualified Codes: R07.9 - Chest pain, unspecified (2) Hypertension: Qualified Codes: I10 - Essential (primary) hypertension Michelle Prajapati Apr 03, 2017 08:31
[2017-04-03] MEDS: DOCUSATE SODIUM 50 MG/SENNA 8.6 MG TAB PO SCH (08:51)
[2017-04-03] MEDS: SODIUM CHLORIDE 0.9% FLUSH 10 ML FLUSH IV FLUSH SCH (08:51)
[2017-04-03] MEDS ORDERED: LOSARTAN 50 MG TAB PO SCH (09:00)
[2017-04-03] MEDS ORDERED: GEMFIBROZIL 600 MG TAB PO SCH (09:00)
[2017-04-03] MEDS ORDERED: TRIAMTERENE/HCTZ 37.5 MG/25 MG TAB PO SCH (09:00)
[2017-04-03] MEDS ORDERED: ASPIRIN 81 MG CHEW TAB CHEW SCH (09:00)
[2017-04-03] MEDS ORDERED: FAMOTIDINE 20 MG TAB PO SCH (09:00)
[2017-04-03] MEDS ORDERED: ATENOLOL 50 MG TAB PO SCH (09:00)
[2017-04-03] MEDS ORDERED: REGADENOSON INJ 0.4 MG/5 ML SYR IV ONE (12:02)
--- NOTE | 2017-04-03 13:17 | RADRPT ---
EXAM DATE/TIME: 04/03/2017 11:54 [facility] COMPARISON: No previous studies available for comparison. INDICATIONS : Left sided chest pain. Angina. DOSE: 35 mCi Tc99m Myoview at stress. 11 mCi Tc99m Myoview at rest. 0.4 mg Lexiscan STRESS SYMPTOMS: Short of breath. EJECTION FRACTION: 42% MEDICAL HISTORY : Hypertension. Chronic obstructive pulmonary disease. Hypercholesterolemia. SURGICAL HISTORY : Vasectomy. ENCOUNTER: Initial ACUITY: 1 day PAIN SCALE: 3/10 LOCATION: Left chest TECHNIQUE: The patient underwent pharmacologic stress with infusion of prescribed dose. Continuous ECG tracing was monitored during stress. Gated SPECT imaging was performed after stress and conventional SPECT i maging was performed at rest. The examination was performed on a SPECT/CT scanner, both attenuation and non-corrected datasets were reviewed. FINDINGS: DISTRIBUTION: The maximum perfused segment at stress is in the lateral wall. PERFUSION STUDY: The pattern of perfusion at stress is within normal limits. GATED STUDY: There is global hypokinesis with a reduced ejection fraction at 42%. CONCLUSION: 1. No areas of ischemia are seen. 2. Global hypokinesis with a reduced ejection fraction at 42%. RISK CATEGORY: Low (<1% Annual Mortality Rate) Tyler Zhong MD on April 03, 2017 at 13:13 Board Certified Radiologist. This report was verified electronically.
--- NOTE | 2017-04-03 13:21 | HHI.DCPOC ---
Discharge Care Plan Diagnosis: (1) Chest pain Your Health Problems Are: Chest Pain Goals to Promote Your Health * To prevent worsening of your condition and complications * To maintain your health at the optimal level Directions to Meet Your Goals Take your medications as prescribed Follow your dietary instruction Follow activity as directed Keep your appointments as scheduled Take your immunizations and boosters as scheduled If your symptoms worsen call your PCP, if no PCP go to Urgent Care Center or Emergency Room Smoking is Dangerous to Your Health. Avoid second hand smoke Call the 24-hour hour crisis hotline for domestic abuse at Michelle Prajapati Apr 03, 2017 13:21
--- NOTE | 2017-04-04 09:31 | TR ---
Date Performed: 04/03/2017 Time Performed: 12:25:26 DOCTOR: Charis Flood DRUG LIST: CLINICAL HISTORY: REASON FOR TEST: REASON FOR ENDING: OBSERVATION: CONCLUSION: Lexiscan stress test was performed under standard four minute protocol. Radionuclid e was injected one minute prior to ending the test. No electrocardiographic abormalities were present to suggest ischemia. Nuclear imaging and interpretation are pending. COMMENTS:
== END 2017-04-03 14:16 | disposition home or self-care (01) ==
LOC: PHED 17:01 → PHEDA 18:42 → PH3A 20:34
PROVIDERS: ADMIT Hospitalist; ATTEND Hospitalist
DX: R07.89 Other chest pain (principal); I10 Essential (primary) hypertension; E78.00 Pure hypercholesterolemia, unspecified; J43.9 Emphysema, unspecified; K21.9 Gastro-esophageal reflux disease without esophagitis; Z87.891 Personal history of nicotine dependence; Z79.899 Other long term (current) drug therapy; Z79.82 Long term (current) use of aspirin; E66.9 Obesity, unspecified; I49.8 Other specified cardiac arrhythmias; R73.09 Other abnormal glucose
CPT/HCPCS: 71010; 78452; 80048; 82550; 82552; 83735; 84484; 85025; 85610; 85730; 93005; 93017; 96372; 97161; 99285; A9502; G0378; G8987; G8988; J1650; J2785